=== PATIENT | male | born 1930 | race Caucasian/White ===

== ENCOUNTER 2016-07-04 09:57 | Outpatient (CLI) | payer MEDICARE ==
[~2016-07-04] VITALS: Ht 182.9 cm; Wt 91.0 kg
[~2016-07-04 09:57] MED LIST: ACET-93 PO; ACHD5005 PO; ASPI-808 PO; CIPR-225 PO; CPR500T PO; HYDR-3812 PO; HYDR1TAB PO; METR500T PO; OXYC-197 PO; OXYC30TA76; OXYCODONE; PHEN-640 PO; SULI200T4; TAMS0.4C98 PO; TRAM50TA2 PO
[2016-07-04 10:09] VITALS: BP 122/56
== END 2016-07-04 12:02 | disposition home or self-care (01) ==
LOC: PREOP 09:57
PROVIDERS: ATTEND Surgery
DX: Z01.818 Encounter for other preprocedural examination (principal); Z11.2 Encounter for screening for other bacterial diseases; L98.9 Disorder of the skin and subcutaneous tissue, unspecified
CPT/HCPCS: 87081

== ENCOUNTER 2016-07-11 06:54 | Day surgery (SDC) | payer MEDICARE ==
[~2016-07-11] VITALS: Ht 182.9 cm; Wt 91.0 kg
[2016-07-11 07:25] VITALS: BP 143/71
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
--- OUTSIDE RECORDS SUMMARY | 2016-07-11 07:42 | XMS REPORT | Continuity of Care Document ---
Author Author [facility] Organization [facility] Address Unknown Phone Unavailable Allergies Active Description Code Type Severity Reaction Onset Reported/Identified Relationship to Patient Clinical Status Yes alcohol [id number] Drug Allergy Mild N/A 07/04/2016 Medications Problems [...] 11/16/2015 Ot E888.9 FALL NOS 11/16/2015 SOPHIA VAN, RANDI Austin Ot 354.0 CARPAL TUNNEL SYNDROME 11/16/2015 RANDI CORTES MD Ot V72.84 EXAM PRE-OPERATIVE NOS 11/16/2015 RANDI CORTES MD Ot V74.8 SCREEN-BACTERIAL DIS NEC 11/16/2015 JULIUS VAN, VAN Leal Ot 709.9 SKIN DISORDER NOS 11/16/2015 JULIUS AVN, VAN Leal Ot V72.84 EXAM PRE-OPERATIVE NOS 11/16/2015 JLUIUS VAN, VAN Leal Ot V74.8 SCREEN-BACTERIAL DIS [...] Z98.89 OTHER SPECIFIED POSTPROCEDURAL STATES 03/29/2016 RANDI CORTES MD Ot 354.0 CARPAL TUNNEL SYNDROME 03/29/2016 [...] Status Pt. Type Provider Facility Loc./Unit Complaint [id number] 07/04/2016 09:57:00 2016 12:02:00 DIS Outpatient VAN MADRID MD [facility] PREOP SKIN LESIONS [id number] 04/04/2016 09:44:00 2015 13:40:00 DIS Outpatient VAN MADRID MD [facility] LESION LEFT ORTHODOXY [id number] 03/29/2016 11:54:00 2015 12:15:00 DIS Outpatient VAN MADRID MD [facility] PREOP LESION LEFT ORTHODOXY [id number] 01/13/2016 09:39:00 2015 10:33:00 DIS Emergency SANTOS VAN, JUAN FRANCISCO Tao [facility] ER WANTS CATHETER REMOVED [id number] 12/09/2015 10:03:00 2015 11:39:00 DIS Emergency ROBERTA LOYOLA MD [facility] ER POSS UTI [id number] 02/25/2015 09:30:00 2014 16:30:00 DIS Outpatient VAN MADRID MD [facility] LESIONS RT NECK, RT CHEEK, LEFT FOREHEAD W/F.S. [id number] 02/21/2015 14:08:00 2014 23:59:59 CLS Outpatient VAN MADRID MD [facility] PREOP MULTIPLE LESIONS [id number] 06/15/2013 07:51:00 2013 12:34:00 DIS Outpatient RANDI CORTES MD [facility] RIGHT CARPAL TUNNEL SYNDROME [id number] 06/10/2013 09:15:00 2013 23:59:59 CLS Outpatient RANDI CORTES MD [facility] PREOP RT CARPAL TUNNEL SYNDROME [id number] 07/11/2016 09:00:00 PEN Preadmit VAN MADRID MD [facility] SKIN LESIONS [id number] 11/16/2015 10:32:00 ACT Outpatient EMANUEL VAN, SHEREE Louie [facility] RAD DIZZINESS, MEMORY LOSS [id number] 11/16/2015 10:31:00 Document Registration [id number] 09/06/2011 13:27:00 Document Registration [id number] 06/15/2010 17:36:00 Document Registration [id number] 09/16/2009 18:13:00 Document Registration
[2016-07-11] MEDS ORDERED: ceFAZolin 1 GM/NS 50 ML IVPB IV ONE ×2 (08:00)
[2016-07-11] MEDS ORDERED: BUP/EPI 0.25% 1:200,000 (MARCAINE) 30 ML VIAL ONE (09:09)
[2016-07-11] MEDS ORDERED: proPOfol 200 MG/20 ML (DIPRIVAN) VIAL IV ONE (09:45)
[2016-07-11] MEDS ORDERED: fentaNYL INJECTION 100 MCG/2 ML AMP ONE (09:46)
[2016-07-11] MEDS: LACTATED RINGERS 1,000 ML IV PRN ×2 (09:57→11:00)
--- NOTE | 2016-07-11 10:13 | Progress Note-Pre Operative ---
Pre-Operative Progress Note H&P Reviewed The H&P was reviewed, patient examined and no changes noted. Date H&P Reviewed: Jul 11, 2016 Time H&P Reviewed: 10:13 Pre-Operative Diagnosis: skin lesions VAN MADRID MD Jul 11, 2016 10:13 am
--- NOTE | 2016-07-11 11:23 | Progress Note-Pre Operative ---
Pre-Operative Progress Note H&P Reviewed The H&P was reviewed, patient examined and no changes noted. Date H&P Reviewed: Jul 11, 2016 Time H&P Reviewed: 10:13 Pre-Operative Diagnosis: Skin lesions VAN MADRID MD Jul 11, 2016 11:23 am
--- NOTE | 2016-07-11 11:24 | Progress Note-Post Operative ---
Post-Operative Progess Note Pre-Operative Diagnosis Skin lesions Post-Operative Diagnosis 1. 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 Estimated blood loss (mL): Minimal Specimen(s) collected Squamous cell carcinoma 2 VAN MADRID MD Jul 11, 2016 11:23 am
[2016-07-11] MEDS ORDERED: TRAM50TA2 PO (11:25)
--- NOTE | 2016-07-11 11:26 | Discharge Inst-Simple/Standard ---
Discharge Inst-Standard Discharge Medications New, Converted or Re-Newed RX: RX on Chart Patient Instructions/Follow Up Plan of Care/Instructions/FU: Dressings off in 48 hours. Follow-up with my nurse in 10 days for suture removal. Gentamicin eye drops to right eye Activity as Tolerated: Yes Discharge Diet: No Restrictions VAN MADRID MD Jul 11, 2016 11:26 am
[2016-07-11] MEDS ORDERED: LACTATED RINGERS 2,000 ML IV ONE (11:28)
[2016-07-11] MEDS ORDERED: ONDANSETRON 4 MG/2 ML (SDV) Z0FRAN ONE (11:28)
[2016-07-11] MEDS ORDERED: SEVOFLURANE (ULTANE) 15 ML INHAL SOLN ONE (11:28)
[2016-07-11] MEDS ORDERED: morphine INJ 10 MG/ML 1ML (SYR OR VIAL) IVP PRN (11:30)
[2016-07-11] MEDS ORDERED: ONDANSETRON 4 MG/2 ML (SDV) Z0FRAN IVP PRN (11:30)
[2016-07-11] MEDS ORDERED: MEPERIDINE (DEMEROL) INJ 50 MG/ML IVP PRN (11:30)
[2016-07-11 12:30] VITALS: BP 134/81
[2016-07-11 13:00] VITALS: BP 136/76
[2016-07-11] MEDS ORDERED: [UNRECOGNIZED DRUG - OTHER] OD (13:11)
--- NOTE | 2016-07-12 12:16 | OPERATIVE REPORT ---
PROCEDURE PHYSICIAN: VAN MADRID DATE OF PROCEDURE: 07/11/2016 PREOPERATIVE DIAGNOSIS: 1. 3 cm lesion right cheek. 2. 2 cm lesion left submandibular region. POSTOPERATIVE DIAGNOSIS: 1. 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 2. 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 OPERATION: Excision of both with frozen section. SURGEON: Mat ANESTHESIA: General anesthesia. BLOOD LOSS: Minimal. FLUIDS: 600 mL of crystalloids. TYPE OF WOUND: Type I (clean wound). INDICATION FOR THE PROCEDURE: This gentleman presented with a raised lesion over the right cheek measuring about 3 cm in size, having the appearance of a carcinoma and a smaller lesion over the left mandibular region with similar features. He was offered excision of both with frozen section to confirm the diagnosis and ensure negative margins. Informed consent was obtained after reviewing the operative details and complications of postop hematoma, wound infection and potential for recurrence. DESCRIPTION OF PROCEDURE: 1. EXCISION OF SQUAMOUS CELL CARCINOMA RIGHT CHEEK: He was placed supine on the operative table and general anesthesia induced using a laryngeal mask airway. Prophylactic antibiotics were administered intravenously. Right cheek was prepared and draped in the usual sterile manner. Preemptive analgesia was established using 0.25% Marcaine with epinephrine. An elliptical incision about 4 cm long x 2 cm wide was made and the lesion excised down to the subcutaneous fat. It was oriented with silk sutures and sent for histologic examination. Dr. Rodriguez confirmed a variant of squamous cell carcinoma with negative margins. She reported concernes about melanoma and therefore additional analysis will be performed on a permanent basis. The defect was then closed using interrupted 6-0 nylon 2. EXCISION OF SQUAMOUS CELL CARCINOMA LEFT MANDIBULAR REGION: After establishing preemptive analgesia, an elliptical incision about 3 cm long x 2 cm wide was made and the lesion excised down to the subcutaneous tissue. This was confirmed to be a squamous cell carcinoma with negative margins by frozen section. The defect was then closed using interrupted 6-0 nylon stitches. He tolerated procedures well, was extubated in the operating room and taken to the recovery room in a stable condition. [place], sponges, and instruments were correct at the end of the operation. Job ID: [id number] Dictated Date: 07/11/2016 11:29:06 Director Community Organization Date: 07/12/2016 12:08:07 / zeinab PINA
== END 2016-07-11 13:30 | disposition home or self-care (01) ==
LOC: SDC 06:54
PROVIDERS: ATTEND Surgery
DX: C44.329 Squamous cell carcinoma of skin of other parts of face (principal)
CPT/HCPCS: 88305; 88331; 88332; 88341; 88342

== ENCOUNTER → 2016-10-23 | Outpatient (CLI) | payer MEDICARE ==
[~2016-10-23] MED LIST changes: +[UNRECOGNIZED DRUG - OTHER] OD
== END ==
LOC: LAB 08:48
PROVIDERS: ATTEND Internal Medicine
DX: R30.0 Dysuria (principal)
CPT/HCPCS: 87088

== ENCOUNTER 2017-09-01 10:31 | Emergency (ER) | payer MEDICARE ==
[~2017-09-01] VITALS: Ht 182.9 cm; Wt 90.7 kg
[~2017-09-01 10:31] MED LIST changes: -HYDR-3812 PO
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
[2017-09-01] MEDS ORDERED: FURO-125 PO (11:00)
[2017-09-01 11:28] LABS: BASOPHILS % (AUTO) 0 % (0-10); EOSINOPHILS # (AUTO) 0.1 10^3/uL (0.0-0.3); EOSINOPHILS % (AUTO) 1 % (0-10); HEMATOCRIT 48 % (40-54); HEMOGLOBIN 15.6 G/DL (13.3-17.7); LYMPHOCYTES # (AUTO) 2.6 X 10^3 (1.0-4.0); LYMPHOCYTES % (AUTO) 28 % (12-44); MEAN CORPUSCULAR HEMOGLOBIN 30 PG (25-34); MEAN CORPUSCULAR HGB CONC 32 G/DL (32-36); MEAN CORPUSCULAR VOLUME 92 FL (80-99); MEAN PLATELET VOLUME 9.6 FL (7.4-10.4); MONOCYTES # (AUTO) 1.1 X 10^3 (0.0-1.0); MONOCYTES % (AUTO) 12 % (0-12); NEUTROPHILS # (AUTO) 5.5 X 10^3 (1.8-7.8); NEUTROPHILS % (AUTO) 59 % (42-75); PLATELET COUNT 249 10^3/uL (130-400); RED BLOOD COUNT 5.22 10^6/uL (4.35-5.85); RED CELL DISTRIBUTION WIDTH 13.3 % (10.0-14.5); WHITE BLOOD COUNT 9.3 10^3/uL (4.3-11.0)
[2017-09-01 11:51] LABS: BUN/CREATININE RATIO 11; CALCIUM 9.4 MG/DL (8.5-10.1); CARBON DIOXIDE 26 MMOL/L (21-32); CHLORIDE 98 MMOL/L (98-107); CREATININE SERUM 1.07 MG/DL (0.60-1.30); GFR ESTIMATED > 60; GLUCOSE 137 MG/DL (70-105); POTASSIUM 4.1 MMOL/L (3.6-5.0); SODIUM 133 MMOL/L (135-145)
--- NOTE | 2017-09-01 12:01 | Diagnostic Imaging Report ---
INDICATION: Foot swelling, pain, and edema. COMPARISON: 09/28/2009. FINDINGS: Frontal and lateral views of the chest demonstrate cardiac enlargement without pulmonary edema. There is some minimal scarring in the right lung base. There is no pneumothorax, effusion, or focal infiltrate. Osseous structures are normal. IMPRESSION: Cardiac enlargement without pulmonary edema or infiltrate. Dictated by: Dictated on workstation # [id number]
--- NOTE | 2017-09-01 13:53 | Diagnostic Imaging Report ---
INDICATION: Lower extremity swelling and pain. COMPARISON: None. FINDINGS: Visualized deep and superficial venous system is patent. There is no mass or DVT. IMPRESSION: Negative lower extremity venous Doppler. Dictated by: Dictated on workstation # [id number]
[2017-09-01] MEDS ORDERED: APIXABAN 5 MG (ELIQUIS) TABLET PO ONE (14:00)
[2017-09-01] MEDS ORDERED: APIX2.5T PO (14:08)
--- NOTE | 2017-09-01 14:08 | ED General ---
General Chief Complaint: Lower Extremity Stated Complaint: FEET SWELLING Nursing Triage Note: TO ROOM 05 VIA WC. COMPLAINS OF BILAT FOOT SWELLING AND PAIN THAT STARTED TWO DAYS AGO. STATES HE TOOK LASIX 20MG TODAY. Nursing Sepsis Screen: No Definite Risk Source of Information: Patient Exam Limitations: No Limitations History of Present Illness Date Seen by Provider: Sep 01, 2017 Time Seen by Provider: 10:55 Allergies and Home Medications Allergies Coded Allergies: alcohol (Unverified Allergy, Mild, 07/04/16) Home Medications Apixaban 2.5 Mg Tablet, 2.5 MG PO BID Prescribed by: ROBERTA MARTINES on 09/01/17 1408 Aspirin 325 Mg Tablet, 325 MG PO PRN, (Reported) Furosemide 20 Mg Tablet, 20 MG PO DAILY, (Reported) Oxycodone HCl/Acetaminophen 1 Each Tablet, 1-2 EACH PO Q6H, (Reported) Potassium Chloride 10 Meq Tablet.er, 10 MEQ PO DAILY PRN Take daily only if taking furosemide Prescribed by: ROBERTA MARTINES on 09/01/17 1410 Tramadol HCl 50 Mg Tablet, 50 MG PO Q12H PRN for PAIN Prescribed by: VAN MADRID on 07/11/16 1125 [Gentamicin Eye Drops] , 2 DROPS OD BID Prescribed by: CHRIS GOVEA on 07/11/16 1311 Past Enxscip-Ezrptd-Asmhue Hx Patient Social History Alcohol Use: Denies Use Recreational Drug Use: No Smoking Status: Never a Smoker Type Used: Smokeless Tobacco Recent Foreign Travel: No Contact w/Someone Who Travel: No Recent Infectious Disease Expo: No Recent Hopitalizations: No Immunizations Up To Date Date of Influenza Vaccine: Mar 02, 2016 Seasonal Allergies Seasonal Allergies: No Surgeries History of Surgeries: Yes (LEFT hip replacement 2009, R CTR, LT AND RT CAROTID , skin lesions) Surgeries: Orthopedic, Vascular Surgery Respiratory History of Respiratory Disorde: No Cardiovascular History of Cardiac Disorders: No Cardiac Disorders: Peripheral Vascular Neurological History of Neurological Disord: No Reproductive System Hx Reproductive Disorders: No Sexually Transmitted Disease: No HIV/AIDS: No Genitourinary History of Genitourinary Disor: No Gastrointestinal History of Gastrointestinal Di: No Musculoskeletal History of Musculoskeletal Dis: Yes Musculoskeletal Disorders: Arthritis Endocrine History of Endocrine Disorders: No HEENT Loss of Vision: Denies Hearing Impairment: Hard of Hearing, Hearing Aide Left Cancer History of Cancer: Yes Cancer: Skin Psychosocial History of Psychiatric Problem: No Integumentary History of Skin or Integumenta: Yes (SKIN LESIONS) Blood Transfusions History of Blood Disorders: No Adverse Reaction to a Blood Tr: No Physical Exam Vital Signs Vital Signs - First Documented 09/01/17 10:43 Temp 98.0 Pulse 61 Resp 18 B/P (MAP) 126/88 (101) Pulse Ox 96 O2 Delivery Room Air Capillary Refill : Less Than 3 Seconds Progress/Results/Core Measures Suspected Sepsis Recent Fever Within 48 Hours: No Infection Criteria Present: None New/Unexplained Altered Menta: No Sepsis Screen: No Definite Risk Sepsis Diagnosis: SIRS Temperature:98.0 Pulse: 61 Respiratory Rate: 18 Laboratory Tests 09/01/17 11:12: White Blood Count 9.3 Blood Pressure 126 /88 Mean: 101 Laboratory Tests 09/01/17 11:12: Creatinine 1.07, Platelet Count 249 Results/Orders Lab Results Laboratory Tests Test 09/01/17 11:12 Range/Units White Blood Count 9.3 4.3-11.0 10^3/uL Red Blood Count 5.22 4.35-5.85 10^6/uL Hemoglobin 15.6 13.3-17.7 G/DL Hematocrit 48 40-54 % Mean Corpuscular Volume 92 80-99 FL Mean Corpuscular Hemoglobin 30 25-34 PG Mean Corpuscular Hemoglobin Concent 32 32-36 G/DL Red Cell Distribution Width 13.3 10.0-14.5 % Platelet Count 249 130-400 10^3/uL Mean Platelet Volume 9.6 7.4-10.4 FL Neutrophils (%) (Auto) 59 42-75 % Lymphocytes (%) (Auto) 28 12-44 % Monocytes (%) (Auto) 12 0-12 % Eosinophils (%) (Auto) 1 0-10 % Basophils (%) (Auto) 0 0-10 % Neutrophils # (Auto) 5.5 1.8-7.8 X 10^3 Lymphocytes # (Auto) 2.6 1.0-4.0 X 10^3 Monocytes # (Auto) 1.1 H 0.0-1.0 X 10^3 Eosinophils # (Auto) 0.1 0.0-0.3 10^3/uL Basophils # (Auto) 0.0 0.0-0.1 10^3/uL D-Dimer 0.63 H 0.00-0.49 UG/ML Sodium Level 133 L 135-145 MMOL/L Potassium Level 4.1 3.6-5.0 MMOL/L Chloride Level 98 98-107 MMOL/L Carbon Dioxide Level 26 21-32 MMOL/L Anion Gap 9 5-14 MMOL/L Blood Urea Nitrogen 12 7-18 MG/DL Creatinine 1.07 0.60-1.30 MG/DL Estimat Glomerular Filtration Rate > 60 BUN/Creatinine Ratio 11 Glucose Level 137 H 70-105 MG/DL Calcium Level 9.4 8.5-10.1 MG/DL B-Type Natriuretic Peptide 294.7 H <100.0 PG/ML TSH [place] Testing 0.89 0.35-4.94 UIU/ML My Orders Orders - ROBERTA LOYOLA MD Basic Metabolic Panel (09/01/17 11:02) BNP (09/01/17 11:02) Cbc With Automated Diff (09/01/17 11:02) Fibrin Degradation Products (09/01/17 11:02) Chest Pa/Lat (2 View) (09/01/17 11:02) Saline Lock/Iv-Start (09/01/17 11:02) Ekg Tracing (09/01/17 11:02) Thyroid Analyzer (09/01/17 11:46) Us Venous Lower Ext Kofi (09/01/17 12:29) Apixaban Tablet (Eliquis Tablet) (09/01/17 14:00) Medications Given in ED Current Medications Medications Dose Ordered Sig/Angelique Route Start Time Stop Time Status Last Admin Dose Admin Apixaban 5 mg ONCE ONCE PO 09/01/17 14:00 09/01/17 14:01 DC 09/01/17 14:18 5 MG Vital Signs/I&O Vital Sign - Last 12Hours 09/01/17 10:43 Temp 98.0 Pulse 61 Resp 18 B/P (MAP) 126/88 (101) Pulse Ox 96 O2 Delivery Room Air Capillary Refill : Less Than 3 Seconds Blood Pressure Mean: 101 Departure Impression Impression: Primary Impression: New onset atrial fibrillation Additional Impression: Leg swelling Disposition: 01 HOME, SELF-CARE Condition: Stable Departure-Patient Inst. Decision time for Depature: 13:50 Referrals: SHEREE DUCKWORTH MD (PCP/Family) Primary Care Physician DONAVAN ORTIZ MD FACP [facility] Patient Instructions: Atrial Fibrillation Add. Discharge Instructions: Follow-up with Dr. Ortiz tomorrow. Call his office first thing in the morning for an appointment time. Take Eliquis as prescribed to prevent blood clot with your atrial fibrillation. Take your first dose tomorrow morning. For swelling you may continue taking Lasix (furosemide) 20 mg daily in the mornings. Always take potassium as prescribed when you take Lasix. Follow-up with Dr. Duckworth next week as well. Return to the ER if you have worsening symptoms. All discharge instructions reviewed with patient and/or family. Voiced understanding. Scripts Potassium Chloride (Potassium Chloride) 10 Meq Tablet.er 10 MEQ PO DAILY PRN, #30 TAB Take daily only if taking furosemide Prov: ROBERTA LOYOLA MD 09/01/17 Apixaban (Eliquis) 2.5 Mg Tablet 2.5 MG PO BID, #60 TAB Prov: ROBERTA LOYOLA MD 09/01/17 ROBERTA LOYOLA MD Sep 01, 2017 14:08
[2017-09-01] MEDS ORDERED: POTA10TA10 PO (14:10)
[2017-09-01 14:18] VITALS: BP 136/74
== END 2017-09-01 14:18 | disposition home or self-care (01) ==
LOC: EDUNIT# 10:31 → ER 10:35
DX: I48.91 Unspecified atrial fibrillation (principal); M79.89 Other specified soft tissue disorders; I73.9 Peripheral vascular disease, unspecified; Z79.01 Long term (current) use of anticoagulants; Z85.828 Personal history of other malignant neoplasm of skin; Z79.82 Long term (current) use of aspirin; Z96.642 Presence of left artificial hip joint
CPT/HCPCS: 36415; 71046; 80048; 83880; 84443; 85025; 85379; 93005; 93970

== ENCOUNTER → 2017-09-10 | Outpatient (CLI) | payer MEDICARE ==
[~2017-09-10] MED LIST changes: +APIX2.5T PO; +FURO-125 PO; +POTA10TA10 PO
== END ==
LOC: RAD 11:42
PROVIDERS: ATTEND Internal Medicine Cardiovascular Disease
DX: I70.202 Unspecified atherosclerosis of native arteries of extremities, left leg (principal); I48.0 Paroxysmal atrial fibrillation
CPT/HCPCS: 93923

== ENCOUNTER → 2017-10-30 | Outpatient (CLI) | payer MEDICARE | LOC: CARD 13:40 | PROVIDERS: ATTEND Internal Medicine Cardiovascular Disease | DX: M79.89 Other specified soft tissue disorders (principal); I48.0 Paroxysmal atrial fibrillation; I73.9 Peripheral vascular disease, unspecified; I08.1 Rheumatic disorders of both mitral and tricuspid valves | CPT/HCPCS: 93306 ==